=== PATIENT | female | born 1955 | race Caucasian/White ===

== ENCOUNTER → 2024-01-06 08:57 | Outpatient (REF) | payer MEDICARE, OTHER, SELFPAY | LOC: HWRAD 08:57 | PROVIDERS: ATTENDING PHYSICIAN Family Medicine | DX: Z87.891 Personal history of nicotine dependence (principal) | CPT/HCPCS: 71271 ==

== ENCOUNTER → 2024-03-01 09:07 | Outpatient (REF) | payer MEDICARE, OTHER, SELFPAY | LOC: HWWDC 09:07 | PROVIDERS: ATTENDING PHYSICIAN Family Medicine | DX: Z12.31 Encounter for screening mammogram for malignant neoplasm of breast (principal) | CPT/HCPCS: 77063; 77067 ==

== ENCOUNTER → 2025-01-17 12:51 | Outpatient (REF) | payer MEDICARE, OTHER, SELFPAY | LOC: HWRAD 12:51 | PROVIDERS: ATTENDING PHYSICIAN Family Medicine | DX: Z87.891 Personal history of nicotine dependence (principal) | CPT/HCPCS: 71271 ==

== ENCOUNTER → 2025-03-22 12:11 | Outpatient (REF) | payer MEDICARE, OTHER, SELFPAY | LOC: HWWDC 12:11 | PROVIDERS: ATTENDING PHYSICIAN Family Medicine | DX: Z12.31 Encounter for screening mammogram for malignant neoplasm of breast (principal) | CPT/HCPCS: 77063; 77067 ==

== ENCOUNTER 2025-03-23 02:57 | Emergency (ER) | payer MEDICARE, OTHER, SELFPAY ==
[2025-03-23 03:03] VITALS: BP 162/67
[2025-03-23 03:26] VITALS: BMI 24.7
[2025-03-23 03:37] VITALS: BP 143/61; BP 149/56; BP 154/69; PULSE 60; PULSE 62
[2025-03-23 03:53] LABS: % Basophils 1.4 % (0-2); % Eosinophils 2.3 % (0-6); % Immature Granulocytes 0.2 % (0-0.5); % Lymphocytes 29.5 % (20.5-51.1); % Monocytes 12.3 % (1.7-9.3); % Neutrophils 54.3 % (42.2-75.2); Absolute Basophils 0.1 10^3/uL (0-0.2); Absolute Eosinophils 0.1 10^3/uL (0-0.7); Absolute Lymphocytes 1.5 10^3/uL (1.2-3.4); Absolute Monocytes 0.6 10^3/uL (0.1-0.6); Absolute Neutrophils 2.8 10^3/uL (1.4-6.5); Hematocrit 42.6 % (37.0-47.0); Mean Corp Hgb Conc. 35.2 g/dL (33.0-37.0); Mean Corpuscular Hgb 31.7 pg (27.0-31.0); Mean Corpuscular Volume 90.1 fL (81.0-99.0); Mean Platelet Volume 10.8 fL (7.4-10.4); Nucleated Red Blood Cells % 0 %; Platelet Count 172 10^3/uL (130-400); Red Blood Cell Count 4.73 10^6/uL (4.20-5.40); White Blood Cell Count 5.1 10^3/uL (4.8-10.8)
--- NOTE | 2025-03-23 03:56 | EDRN ---
Pt woke around 0100 to go to the bathroom and felt lightheaded, said she was 'wobbly' while in the bathroom. Pt returned to bed, still felt lightheaded and drank a bottle of water. Pt put a pillow under her legs to elevate them. 1.5 hours later,
pt sat up in bed and still felt lightheaded which prompted ED visit. Pt says she has 'very mild nausea' and she is thirsty, has a dry mouth. Pt says she walked down the hallway and had no weakness, cp, sob, headache, visual/speech disturbance,
fever/chills/cough, diaphoresis. Pt adds she had short periods of lightheadedness 6-8 weeks ago so she saw Dr Barrera's [employer] and pt's HCTZ dose was cut in half. Pt has not had lightheadedness until this morning. When pt closes her eyes 'I feel
dizzy, like things are spinning.' During ortho signs, pt was very lightheaded going from supine to sitting and a little going from sitting to standing.
[2025-03-23 04:00] VITALS: BP 148/61
[2025-03-23 04:07] LABS: Blood Urea Nitrogen 30 mg/dl (7-17); Calcium 9.7 mg/dl (8.4-10.2); Carbon Dioxide 25 mmol/L (22-30); Chloride 112 mmol/L (98-107); Estimated Creatinine Clearance 61 ml/min; Glucose 97 mg/dl (70-99); Sodium 141 mmol/L (135-145); eGFR > 60.00
[2025-03-23] MEDS: NSS 500 IV (04:39)
--- NOTE | 2025-03-23 04:53 | ED.GENMED ---
History of Present Illness
General
Chief Complaint: Fainting Sensation
Source: patient and spouse
Exam Limitations: none
Time Seen by Provider: 03/23/25 03:14
History of Present Illness
History of Present Illness:
69-year-old female presents after she woke up around 1 AM to go to the bathroom and noted she felt lightheaded. She states she felt a little wobbly going to the bathroom and felt lightheaded. She states she almost felt like she was going to pass
out but not really. She laid down back on the bed and put her feet up but after an hour her symptoms have persisted. She states she felt a very little bit of nausea and also states that she at one point felt a little bit like the room was
spinning. She denies headache. No vision changes. No motor weakness. Normal speech. No sensory changes. Patient states she feels a little better now but still little bit lightheaded. states that he helped her walk into the hospital.
Patient does admit that she recently had her hydrochlorothiazide decreased because she had felt lightheaded. No palpitations
Past History
Past History
ED Past Medical History: HTN, Hypercholesterolemia and Other (Back pain)
ED Past Surgical History: Appendectomy, and Tonsilectomy
Social History
Tobacco: Non-smoker
Alcohol: None
Drug: None
Phy Exam
Physical Exam
Physical Exam:
CONSTITUTIONAL Patient alert and oriented to person, place and time. Well-appearing. Vital signs reviewed.
HEAD atraumatic, normocephalic.
EYES eyelids normal to inspection, Extraocular muscles intact, Conjunctiva normal, Sclera normal.
NECK normal range of motion, Trachea midline, no jugular venous distention.
RESPIRATORY CHEST No respiratory distress noted, Chest expansion equal, Bilateral breath sounds clear.
CARDIOVASCULAR regular rate and rhythm, Heart sounds normal.
ABDOMEN abdomen nontender, Bowel sounds normal. No distention.
BACK normal inspection, no obvious deformities
UPPER EXTREMITY range of motion normal, Motor strength normal, no cyanosis, no edema.
LOWER EXTREMITY range of motion normal, Motor strength normal, no cyanosis, no edema.
NEURO Speech normal, No focal motor deficits, Lengby coma scale 15, Memory normal, Cranial Nerves intact to screening exam. Normal [id number]. Normal [id number]. No pronator drift. No visual field deficit. Patient reports very slight
sense of movement when her head is rotated to the left. No obvious nystagmus
SKIN skin warm, dry, and normal in color.
Course
Orders/Labs/Results
Orders:
Orders
03/23/25 03:28
CT Head W/o Iv Contrast Urgent
Comment:
Reason For Exam: dizziness
03/23/25 03:29
Electrocardiogram (*1) Stat
Reason for Study: Other
Other Reason for Exam: neuro symptoms
EKG- Treatment ONCE
03/23/25 03:43
Basic Metabolic Panel Urgent
Complete Blood Count/With Diff Urgent
03/23/25 04:16
0.9% Sodium Chloride 500 ml [Nss] 500 ml IV BOLUS
03/23/25 04:36
Hep Liver [Nxdtl-Cgax-Tulxydb] Urgent
Potassium Urgent
Abnormal Lab Results
03/23/25 03/23/25
03:43 04:36
MCH 31.7 H pg
(27.0-31.0)
MPV 10.8 H fL
(7.4-10.4)
Monocytes % 12.3 H %
(1.7-9.3)
Chloride 112 H mmol/L
(98-107)
BUN 30 H mg/dl
(7-17)
AST 39 H U/L
(14-36)
ALT 39 H U/L
(0-35)
Total Protein 5.9 L g/dl
(6.3-8.2)
03/23/25 03:43
03/23/25 04:36
Vital Signs
Initial and Last Documented VS:
Initial Vital Signs
Temp Pulse Resp BP Pulse Ox
97.8 F 64 18 162/67 98
03/23/25 03:03 03/23/25 03:03 03/23/25 03:03 03/23/25 03:03 03/23/25 03:03
Last Documented Vital Signs
Temp Pulse Resp BP Pulse Ox
97.8 F 59 13 145/56 98
03/23/25 03:03 03/23/25 05:00 03/23/25 05:00 03/23/25 05:00 03/23/25 03:03
MDM/Problems Addressed
Differential Diagnosis Includes:
Vertigo, CVA, volume depletion, orthostasis, vasovagal event, arrhythmia
MDM/Problems Addressed:
Lightheadedness, dizziness
*Radiology
Radiology exam reviewed: preliminary read by ED provider (No obvious intracranial hemorrhage) and radiology read reviewed
*Pulse Oximetry
Patient hypoxic: no
*EKG
Interpreted by ED Provider?: Yes
Interpretation: normal
Rate: normal
Rhythm: sinus
[place]: normal axis
Interval: normal interval
QRS Pattern: normal QRS
Ischemia: no ischemia
*Rn Clinical Resource Interpretation
Rate: normal
Interpretation: normal
Rhythm: sinus
*Critical Care Note
Total Time (30-74mins, 75-104mins- exclusive of procedures): Not Applicable
Data Reviewed
Review of Other/Old Records Reveals: Testing (Echocardiogram reviewed from September 2020, ejection fraction 60 to 65%)
Source: patient and spouse
Further Testing Considered But Not Given:
Consider CTA but no clinical suspicion for dissection. No focal neurologic assessment findings
Patient Management
Escalation/DeEscalation of care consider admission/obs:
Patient observed over time. Reassessed and exam remains normal. CT negative. Vital signs okay. EKG okay. Symptoms mostly lightheadedness. I do feel comfortable with outpatient management. Do not find any focal neurologic assessment findings.
Recommended proper hydration and outpatient follow-up. Also could consider positional vertigo as there was some element to her head position. Patient agrees to follow-up and to return for any worsening symptoms
ED Attending Note
-
Portions of this chart may have been created with voice recognition software.� Occasional wrong word or��sound alike� substitutions may have occurred due to the inherent limitations of voice recognition software.
Discharge Plan
Departure
Patient Disposition: Home (Routine Discharge)
Date of Disposition: 03/23/25
Time of Disposition: 05:43
Patient with high blood pressure during this ER visit?: No
Discharge Problem:
Lightheadedness
Instructions: Dizziness in adults - ED discharge instructions
Prescriptions:
No Action
atorvastatin 80 mg Tablet
80 mg PO DAILY
cyanocobalamin (vitamin B-12) 1,000 mcg Tablet
1,000 mcg PO DAILY
calcium carbonate [Calcium 600] 600 mg calcium (1,500 mg) Tablet
600 mg PO DAILY
ezetimibe [Zetia] 10 mg Tablet
10 mg PO DAILY
glucosamine-chondroitin [Osteo Bi-Flex] 250-200 mg Tablet
2 tab PO DAILY
hydrochlorothiazide 12.5 mg Tablet
12.5 mg PO DAILY
cholecalciferol (vitamin D3) [Vitamin D3] 50 mcg (2,000 unit) Tablet
50 mcg PO DAILY
teriparatide [Forteo] 20 mcg/dose (560mcg/2.24mL) Pen Injector
20 mcg SC DAILY
Praluent Pen 75 mg/mL Pen Injector
75 mg SC Q2W
CoQ-10
300 mg PO DAILY
Probiotic
184 mg PO DAILY
psyllium
5 cap PO DAILY
Referrals:
Diandra Deleon DO [Family Provider] -
Activity Restrictions/Additional Instructions:
Please drink plenty of fluids. Please see your doctor in the next 3 to 4 days for follow-up and reevaluation. Return immediately for difficulty walking, vision changes, motor weakness, speech changes, sensory changes or any other concerns.
Interventions
Interventions:
*Risk Screen - Suicide Last Done: 03/23/25 03:03
*General Assessment Last Done: 03/23/25 03:26
*Neglect/Abuse Screening Last Done: 03/23/25 03:26
*ED- Fall Risk Assessment Last Done: 03/23/25 03:53
ED- Cardiac Assessment Last Done: 03/23/25 03:53
ED- Neurological Assessment Last Done: 03/23/25 03:53
Discharge Date and Time
Print Language: URDU
[2025-03-23 05:00] VITALS: BP 145/56
[2025-03-23 05:07] LABS: ALT (SGPT) 39 U/L (0-35); AST (SGOT) 39 U/L (14-36); Albumin 3.9 g/dl (3.5-5.0); Alkaline Phosphatase 83 U/L (38-126); Direct Bilirubin 0.1 mg/dl (0.0-0.4); Potassium 4.2 mmol/L (3.5-5.1); Total Bilirubin 0.8 mg/dl (0.2-1.3); Total Protein 5.9 g/dl (6.3-8.2)
== END 2025-03-23 06:00 | disposition home or self-care (01) ==
LOC: EMR 02:57
PROVIDERS: EMERGENCY PHYSICIAN Emergency Medicine; FAMILY PHYSICIAN Family Medicine
DX: R42 Dizziness and giddiness (principal); I10 Essential (primary) hypertension; E78.00 Pure hypercholesterolemia, unspecified; Z90.49 Acquired absence of other specified parts of digestive tract
CPT/HCPCS: 99284; 96360; 70450; 80048; 80076; 84132; 85025; 93005

== ENCOUNTER → 2025-05-01 13:42 | Outpatient (REF) | payer MEDICARE, OTHER, SELFPAY | LOC: RCS 13:42 | PROVIDERS: ATTENDING PHYSICIAN Nurse Practitioner; FAMILY PHYSICIAN Family Medicine | DX: R42 Dizziness and giddiness (principal); I10 Essential (primary) hypertension | CPT/HCPCS: 93306 ==

== ENCOUNTER → 2025-05-20 13:21 | Outpatient (REF) | payer MEDICARE, OTHER, SELFPAY | LOC: HWRAD 13:21 | PROVIDERS: ATTENDING PHYSICIAN Internal Medicine; FAMILY PHYSICIAN Family Medicine | DX: M81.0 Age-related osteoporosis without current pathological fracture (principal) | CPT/HCPCS: 77080 ==

== ENCOUNTER → 2025-05-31 10:04 | Outpatient (REF) | payer MEDICARE, OTHER, SELFPAY | LOC: HWRAD 10:04 | PROVIDERS: ATTENDING PHYSICIAN Student in an Organized Health Care Education/Training Program; FAMILY PHYSICIAN Family Medicine | DX: M81.0 Age-related osteoporosis without current pathological fracture (principal) | CPT/HCPCS: 72072; 72110 ==